=== PATIENT | male | born 1960 | race Two or more races ===

== ENCOUNTER 2018-01-12 10:03 | Emergency (ER) | payer MEDICAID, OTHER ==
[~2018-01-12] VITALS: Ht 167.6 cm; Wt 70.8 kg
[2018-01-12 10:03] VITALS: BP 124/81
--- NOTE | 2018-01-12 10:45 | NUR ---
57 Y/O MALE PLACED IN BED 12 C/O PAIN AND SWELLING TO 3RD DIGIT OF RIGHT HAND
[2018-01-12] MEDS ORDERED: IBUPROFEN 400 MG TABLET PO ONE (11:30)
[2018-01-12] MEDS ORDERED: IBUPROFEN 400 MG TABLET ONE (11:36)
--- NOTE | 2018-01-12 12:14 | NUR ---
X-RAY REVEALS NO FRACTURE. PENDING DISCHARGE OF PT.
--- NOTE | 2018-01-12 12:28 | NUR ---
DX CELLULITIS WITH POSSIBLE GOUT. ACI WITH RX GIVEN. PT DISCHARGED HOME TO FOLLOW UP WITH PMD.
== END 2018-01-12 12:32 | disposition home or self-care (01) ==
LOC: ER 10:08
DX: L03.011 Cellulitis of right finger (principal); M10.041 Idiopathic gout, right hand; F17.200 Nicotine dependence, unspecified, uncomplicated; Z88.0 Allergy status to penicillin
CPT/HCPCS: 73140-TC; A4606; Z7610

== ENCOUNTER 2021-02-02 15:14 | Emergency (ER) | payer OTHER ==
[~2021-02-02] VITALS: Ht 167.6 cm; Wt 67.1 kg
[2021-02-02 16:31] VITALS: BP 123/82
--- NOTE | 2021-02-02 16:31 | NUR ---
PT BIBSELF FROM HOME C/OSINUS CONGESTION AND COLDS X 2 WEEKS. PT A/OX4. TOLERATING R/A WELL; RESP EVEN AND NONLABORED.
[2021-02-02] MEDS ORDERED: DOXY100C2 PO (17:47)
[2021-02-02] MEDS ORDERED: GUAI1TBM19 PO (17:47)
[2021-02-02] MEDS ORDERED: AZIT250T13 PO (17:47)
--- NOTE | 2021-02-02 17:48 | NUR ---
COVID PCR, ANTIGEN, AND RAPID TEST COLLECTED AND SENT TO LAB
--- NOTE | 2021-02-02 18:07 | NUR ---
[facility]
== END 2021-02-02 18:07 | disposition home or self-care (01) ==
LOC: ER 16:30
DX: J20.9 Acute bronchitis, unspecified (principal); Z20.822 Contact with and (suspected) exposure to COVID-19; Z86.16 Personal history of COVID-19; Z88.0 Allergy status to penicillin; F17.200 Nicotine dependence, unspecified, uncomplicated
CPT/HCPCS: 71045; 87426; 87804; 99284; C9803 ×2; U0003

== ENCOUNTER 2023-07-06 10:34 | Emergency (ER) | payer OTHER ==
[~2023-07-06] VITALS: Ht 170.2 cm; Wt 64.4 kg
[~2023-07-06 10:34] MED LIST: AZIT250T13 PO; DOXY100C2 PO; GUAI1TBM19 PO
[2023-07-06 10:37] VITALS: TEMP 98.5
[2023-07-06] MEDS ORDERED: AZIT250T13 PO (12:40)
[2023-07-06 12:47] VITALS: BP 122/62; O2SAT 98
== END 2023-07-06 12:48 | disposition home or self-care (01) ==
LOC: ER 11:03
DX: J06.9 Acute upper respiratory infection, unspecified (principal); F17.200 Nicotine dependence, unspecified, uncomplicated; Z79.899 Other long term (current) drug therapy; Z20.822 Contact with and (suspected) exposure to COVID-19; Z60.2 Problems related to living alone; Z88.0 Allergy status to penicillin
CPT/HCPCS: 71045-TC; 86403-TC; 87070-TC

== ENCOUNTER 2024-11-13 15:07 | Emergency (ER) | payer OTHER ==
[~2024-11-13] VITALS: Ht 167.6 cm; Wt 68.0 kg
[2024-11-13 15:22] VITALS: BP 119/70; TEMP 97.7
[2024-11-13] MEDS ORDERED: AZIT500T4 PO (15:41)
[2024-11-13 15:46] VITALS: O2SAT 97
== END 2024-11-13 15:47 | disposition home or self-care (01) ==
LOC: ER 15:07
DX: J32.9 Chronic sinusitis, unspecified (principal); J06.9 Acute upper respiratory infection, unspecified; J44.9 Chronic obstructive pulmonary disease, unspecified; F17.200 Nicotine dependence, unspecified, uncomplicated; Z88.0 Allergy status to penicillin; Z60.2 Problems related to living alone